=== PATIENT | female | born 1990 | race Two or more races ===

== ENCOUNTER 2016-10-18 10:04 | Emergency (ER) | payer OTHER ==
[~2016-10-18] VITALS: Ht 157.5 cm; Wt 91.8 kg
[2016-10-18 10:23] VITALS: BP 123/86
== END 2016-10-18 12:00 | disposition home or self-care (01) ==
LOC: EDBD 10:04 → ED 10:04
DX: H10.33 Unspecified acute conjunctivitis, bilateral (principal)

== ENCOUNTER 2016-12-19 22:57 | Emergency (ER) | payer OTHER ==
[2016-12-20 00:03] VITALS: BP 125/82
== END 2016-12-20 00:03 | disposition home or self-care (01) ==
LOC: ED 22:57
DX: H66.93 Otitis media, unspecified, bilateral (principal); R05 Cough

== ENCOUNTER 2020-02-13 10:31 | Emergency (ER) | payer OTHER, SELFPAY ==
[~2020-02-13] VITALS: Ht 154.9 cm; Wt 94.3 kg
[2020-02-13 10:32] VITALS: BP 126/87; Ht 154.9 cm; Wt 94.3 kg
== END 2020-02-13 11:42 | disposition home or self-care (01) ==
LOC: ED 10:31
DX: U07.1 COVID-19 (principal); G43.909 Migraine, unspecified, not intractable, without status migrainosus
CPT/HCPCS: U0003-CS